=== PATIENT | male | born 1940 | race Caucasian/White ===

== ENCOUNTER 2016-07-19 12:24 | Emergency (ER) | payer OTHER ==
[~2016-07-19] VITALS: Ht 185.4 cm; Wt 122.5 kg
[~2016-07-19 12:24] MED LIST: BACTRIM DS 8001 TAB PO; COUMADIN 2.5 M2.5 MG PO; FLOMAX0.4 M1 PO; HYZAAR 12.5 MG-1 TAB PO; KEFLEX250 M1 PO; OXYCONTIN10 MG PO; ULTRAM(MONOGRAP50 MG PO; VENTOLIN HFA18 GM INH; WARFARIN SODIUM5 MG PO; ZETIA10 M1 PO
--- NOTE | 2016-07-19 13:00 | ED CARDIAC/CP/PALPITATIONS ---
History of Present Illness General Chief Complaint: Chest Pain Stated Complaint: CP Source: patient, family, old records Exam Limitations: no limitations Vital Signs & Intake/Output Vital Signs & Intake/Output Vital Signs Date Time Temp Pulse Resp B/P Pulse O2 O2 Flow FiO2 Ox Delivery Rate 07/19 1621 70 179/82 07/19 1527 98.0 69 18 139/66 96 Room Air 07/19 1340 97.6 58 18 129/60 94 Room Air 07/19 1309 96 Room Air 07/19 1232 99.0 85 20 152/70 96 Room Air Allergies Coded Allergies: NO KNOWN ALLERGIES (12/29/11) Reconcile Medications Albuterol Sulfate (Ventolin Hfa) 90 MCG HFA.AER.AD 2 PUF INH Q4-6 PRN PRN SHORTNESS OF BREATH (Reported) Ezetimibe (Zetia) 10 MG TABLET 1 TAB PO DAILY HIGH CHOLESTROL (Reported) Hyoscyamine (Levsin) 0.125 MG TABLET 1-2 TAB PO Q6P PRN esophageal spasms Losartan/Hydrochlorothiazide (Losartan-Hctz 50-12.5 MG Tab) 50 MG-12.5 MG TABLET 1 TAB PO DAILY HIGH BLOOD PRESSURE (Reported) Montelukast Sodium 10 MG TABLET 1 TAB PO DAILY ALLERGIES (Reported) Rivaroxaban (Xarelto) 20 MG TABLET 1 TAB PO DAILY HEART HEALTH (Reported) with food Tamsulosin HCl (Flomax) 0.4 MG CAP.ER.24H 1 CAP PO DAILY BLADDER HEALTH ( Reported) Tramadol HCl (Ultram) 50 MG TABLET 1 TAB PO Q6 PRN KNEE PAIN (Reported) Triage Note: PT TO ED C/O INDIGESTION SINCE LAST NIGHT. TOOK PRILOSEC AND MAALOX LAST NIGHT WITH NO RELIEF. DENIES SOB OR DIFF BREATHING. Triage Nurses Notes Reviewed? yes HPI: Patient presents for evaluation of a lower substernal chest pain that began yesterday. Patient states he had taken it to clindamycin tablets as prophylaxis for dental treatment. He states that he began having acid reflux while reclining in the dentist's chair. He states the pain became worse overnight. He tried Prilosec last night without improvement. He states that the pain becomes more prominent with swallowing. It is described as a severe sharp intermittent pain that then became constant at about 9:30 to 10:00 this morning while reading at home. He contacted his primary care doctor who instructed him to go to the emergency department. Patient states he was not even able to swallow liquids or Jell-O. There is no radiation of the pain in her has been no associated diaphoresis or dyspnea. 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 Fortunately, Guero is pain free at present. Past History Travel History Traveled to [place] past 21 day No Medical History Any Pertinent Medical History? see below for history Neurological: NONE EENT: NONE Cardiovascular: hypertension, hyperlipidemia Respiratory: asthma, obstructive sleep apnea, pulmonary embolism Gastrointestinal: NONE Hepatic: NONE Renal: benign prost hyperplasia, nephrolithiasis, UTI Musculoskeletal: osteoarthritis, RT.KNEE REPLACEMENT Psychiatric: NONE Endocrine: NONE Blood Disorders: NONE Cancer(s): NONE BELL STAFF/Reproductive: NONE Other Medical Hx: Obstructive sleep apnea and status post PE in 2005 History of MRSA: No History of VRE: No History of CDIFF: No Pneumonia Vaccine: 01/18/14 Surgical History Surgical History: non-contributory, knee replacement Psychosocial History Who do you live with Spouse Services at Home None What is your primary language Malay Tobacco Use: Never used ETOH Use: denies use Illicit Drug Use: denies illicit drug use Family History Family History, If Any: MOTHER (mother had liver cirrhosis secondary to hepatitis C). FATHER (father had CHF). BROTHER (brother of lung cancer). SISTER (sister had sarcoidosis). Hx Contributory? No Review of Systems Review of Systems Constitutional: Reports: no symptoms. EENTM: Reports: no symptoms. Respiratory: Reports: no symptoms. Cardiovascular: Reports: no symptoms. GI: Reports: no symptoms. Genitourinary: Reports: no symptoms. Musculoskeletal: Reports: no symptoms. Skin: Reports: no symptoms. Neurological/Psychological: Reports: no symptoms. Hematologic/Endocrine: Reports: no symptoms. Immunologic/Allergic: Reports: no symptoms. All Other Systems: Reviewed and Negative Physical Exam Physical Exam Cardiovascular: SEE BELOW Comments: Gen.: Well-nourished, well-developed, no acute respiratory distress. Head: Normocephalic, atraumatic. Eyes: Normal inspection bilaterally Ears: Normal inspection bilaterally Nose: Normal inspection Throat/mouth : Moist mucosa Neck: Supple, full range of motion, no goiter Heart: Regular rate and rhythm, no murmurs rubs or gallops Lungs: Clear to auscultation bilaterally with normal air entry Chest: Nontender Back: Normal range of motion Abdomen: Soft, nontender, nondistended, normal bowel sounds Extremities: Normal range of motion grossly, equal radial pulses, no cyanosis clubbing or edema, calves nontender Neurologic: Cranial nerves grossly intact, speech is clear Skin: warm and dry Psychiatric: Calm, cooperative, no apparent delusions or hallucinations Core Measures ACS in differential dx? No Severe Sepsis Present: No Septic Shock Present: No Progress Differential Diagnosis: esophageal spasms, esophageal food impaction, esophageal stricture Plan of Care: Orders Procedure Date/time Status Add-on Test (ER Only) 07/19 1259 Active LIPASE 07/19 1250 Complete TROPONIN LEVEL 07/19 1238 Complete COMPREHENSIVE METABOLIC PANEL 07/19 1238 Complete CBC WITHOUT DIFFERENTIAL 07/19 1238 Complete EKG 07/19 1226 Active Laboratory Tests 07/19/16 1250: Anion Gap 12, Estimated GFR > 60, BUN/Creatinine Ratio 14.5, Glucose 95, Calcium 9.2, Total Bilirubin 0.7, AST 33, ALT 29, Alkaline Phosphatase 69, Troponin I < 0.01, Total Protein 6.3, Albumin 3.7, Globulin 2.6, Albumin/Globulin Ratio 1.4, Lipase 75, CBC w Diff NO MAN DIFF REQ, RBC 5.13, MCV 85.4, MCH 28.3, RDW 15.1 H , MPV 8.3, Gran % 76.6 H, Lymphocytes % 9.6 L, Monocytes % 7.8, Eosinophils % 5.8 H, Basophils % 0.2, Absolute Granulocytes 7.5 H, Absolute Lymphocytes 0.9 L, Absolute Monocytes 0.8 H, Absolute Eosinophils 0.6, Absolute Basophils 0, PUBS MCHC 33.2 Diagnostic Imaging: Discussed w/RAD: CT Scan. Radiology Impression: PATIENT: GUERO LEE PRESENT AGE: 76 PATIENT ACCOUNT NO: [id number] : 42 LOCATION: [facility] ORDERING PHYSICIAN: ROCAEL CHAMORRO MD SERVICE DATE: 07/19/16-1258 EXAM TYPE: CAT - CT CHEST WO IV CONTRAST EXAMINATION: CT CHEST WITHOUT CONTRAST CLINICAL INFORMATION: History of nutcracker esophagus. Esophageal foreign body. COMPARISON: Chest x-ray 07/19/2015. TECHNIQUE: Multidetector volumetric CT imaging of the chest was done. Axial MIP volume rendering provided. Sagittal and coronal reformatted images were obtained. DLP: 768 mGy-cm FINDINGS: LUNGS: Both lungs are well expanded and clear of acute pneumonic process. A 2 mm calcified granuloma is seen right lower lobe, image 370 series 7. 2 mm noncalcified nodule is seen in the lingula, image 363 series 7. No additional nodules, mass or consolidation seen. MEDIASTINUM: The thyroid lobes are symmetrical. The central trachea and the bronchi widely patent. No abnormal-size mediastinal or hilar lymph nodes seen. Heart size and the great vessels are normal caliber. PLEURA: There is no pleural effusion. No pleural mass or thickening. AXILLA: Small shotty lymph nodes are seen in the right axilla. No gross bony abnormality seen. UPPER ABDOMEN: Visualized liver, spleen and bilateral adrenal glands are unremarkable. Partially exophytic cyst is seen in the upper pole right kidney. OSSEOUS STRUCTURES: No lytic or sclerotic process seen. IMPRESSION: No acute cardiopulmonary process seen. 2 mm calcified granuloma right lobe and a noncalcified 2 mm nodule in the lingula. Recommend follow-up as per Fleischner guidelines. DICTATED BY: MEHDI SYLVESTER MD DATE/TIME DICTATED:07/19/161340 RESEARCH MECHANIC:BARRETT DATE/TIME TRANSCRIBED:07/19/161340 CONFIDENTIAL, DO NOT COPY WITHOUT APPROPRIATE AUTHORIZATION. <Electronically signed in Other Vendor System> SIGNED BY: MEHDI SYLVESTER MD 07/19/16 1650 Initial ED EKG: NSR, rate (69) Prior EKG: unchanged Rhythm Strip: normal sinus rhythm Comments: 07/19/2016 4:55:22 PM patient updated on test results (and regarding the delay in the CAT scan report) and all questions have been answered. I have notified Guero of the presence of a lung nodule and he will have this monitored via his primary care doctor. Departure Departure Disposition: HOME OR SELF CARE Condition: Stable Clinical Impression Primary Impression: Esophageal spasm Secondary Impressions: Nodule of right lung Referrals: NICA CASTANEDA,BALWINDER Seay (PCP/Family) Additional Instructions: You have 2 nodules in the right lung that will need to be monitored by Dr. Ibrahim. Please contact his office tomorrow and arrange for follow-up appointment. Levsin as needed for esophageal spasms. Follow-up with your GI specialist for reevaluation what appears to be esophageal spasms as soon as possible. Return if any concerns or sudden worsening. Please note that there might be incidental findings in your evaluation that are unrelated to the current emergency department visit. Please notify your primary care doctor about this emergency department visit in order to obtain and review all of the testing performed so that these incidental findings can be monitored as needed. If you had an x-ray performed, please understand that some fractures may not be seen on the initial set of x-rays. If your symptoms persist you might need a repeat set of x-rays to check for such a fracture. If you had a laceration evaluated, please understand that foreign bodies such as glass or wood may not be visible to the naked eye or on plain x-rays. If the wound becomes red, swollen, increasingly more painful or if there is any drainage from the wound, please have it reevaluated by a physician for the possibility of a retained foreign body. Thank you for choosing the Emergency Department for your care. It was a pleasure to serve you today. Rocael Chamorro M.D. [facility] Departure Forms: Customer Survey General Discharge Information Prescriptions: Current Visit Scripts Hyoscyamine (Levsin) 1-2 TAB PO Q6P PRN esophageal spasms #20 TAB Critical Care Note Critical Care Note Critical Care Time: non-applicable
[2016-07-19 13:06] LABS: ABSOLUTE BASOPHIL COUNT 0 /CUMM (0.0-0.2); ABSOLUTE EOSINOPHIL COUNT 0.6 /CUMM (0.0-0.7); ABSOLUTE GRANULOCYTE CT 7.5 /CUMM (1.4-6.5); ABSOLUTE LYMPH COUNT 0.9 /CUMM (1.2-3.4); ABSOLUTE MONOCYTE COUNT 0.8 /CUMM (0.10-0.60); BASOPHIL % 0.2 % (0.0-2.0); EOSINOPHIL % 5.8 % (0-5); GRANULOCYTE % 76.6 % (42.2-75.2); HEMATOCRIT 43.8 % (42-52); MEAN CORPUSCULAR HGB 28.3 PG (27.0-31.0); MEAN CORPUSCULAR HGB CONC 33.2 G/DL (33.0-37.0); MEAN CORPUSCULAR VOLUME 85.4 FL (80.0-94.0); MEAN PLATELET VOLUME 8.3 FL (7.4-10.4); PLATELET COUNT 188 /CUMM (130-400); RBC DISTRIBUTION WIDTH 15.1 % (11.5-14.5); RED BLOOD CELL CT 5.13 /CUMM (4.70-6.10); WHITE BLOOD CELL COUNT 9.8 /CUMM (4.8-10.8)
[2016-07-19] MEDS ORDERED: XARELTO20 M2 PO (13:50)
[2016-07-19] MEDS ORDERED: LOSARTAN-HCTZ1 EAC1 PO (13:50)
[2016-07-19] MEDS ORDERED: MONTELUKAST SOD10 M1 PO (13:52)
--- NOTE | 2016-07-19 16:50 | CT SCAN REPORT ---
EXAMINATION: CT CHEST WITHOUT CONTRAST CLINICAL INFORMATION: History of nutcracker esophagus. Esophageal foreign body. COMPARISON: Chest x-ray 07/19/2015. TECHNIQUE: Multidetector volumetric CT imaging of the chest was done. Axial MIP volume rendering provided. Sagittal and coronal reformatted images were obtained. DLP: 768 mGy-cm FINDINGS: LUNGS: Both lungs are well expanded and clear of acute pneumonic process. A 2 mm calcified granuloma is seen right lower lobe, image 370 series 7. 2 mm noncalcified nodule is seen in the lingula, image 363 series 7. No additional nodules, mass or consolidation seen. MEDIASTINUM: The thyroid lobes are symmetrical. The central trachea and the bronchi widely patent. No abnormal-size mediastinal or hilar lymph nodes seen. Heart size and the great vessels are normal caliber. PLEURA: There is no pleural effusion. No pleural mass or thickening. AXILLA: Small shotty lymph nodes are seen in the right axilla. No gross bony abnormality seen. UPPER ABDOMEN: Visualized liver, spleen and bilateral adrenal glands are unremarkable. Partially exophytic cyst is seen in the upper pole right kidney. OSSEOUS STRUCTURES: No lytic or sclerotic process seen. IMPRESSION: No acute cardiopulmonary process seen. 2 mm calcified granuloma right lobe and a noncalcified 2 mm nodule in the lingula. Recommend follow-up as per Fleischner guidelines.
[2016-07-19] MEDS ORDERED: LEVSIN0.125 M1 PO (17:14)
[2016-07-19 17:22] VITALS: BP 165/90
== END 2016-07-19 17:48 ==
LOC: ERH 12:24
PROVIDERS: Emergency Medicine
DX: K22.4 Dyskinesia of esophagus (principal); R91.1 Solitary pulmonary nodule; R07.2 Precordial pain
CPT/HCPCS: 93005; 93010